=== PATIENT | male | born 2000 | race Caucasian/White ===

== ENCOUNTER 2023-04-28 16:43 | Emergency (ER) | payer OTHER, MEDICAID ==
[~2023-04-28] VITALS: Ht 165.1 cm; Wt 99.8 kg
== END 2023-04-28 16:56 ==
LOC: SED 16:43
DX: Z02.89 Encounter for other administrative examinations (principal); E11.9 Type 2 diabetes mellitus without complications; I10 Essential (primary) hypertension; Z79.899 Other long term (current) drug therapy
CPT/HCPCS: 99283